=== PATIENT | male | born 1975 | race Caucasian/White ===

== ENCOUNTER 2017-01-06 12:10 | Emergency (ER) | payer BC ==
[~2017-01-06] VITALS: Ht 185.4 cm; Wt 90.7 kg
[2017-01-06] MEDS ORDERED: Morphine Sulfate 4mg/ml Inj IVP ONE (12:45)
[2017-01-06 13:34] LABS: MEAN CORPUSCULAR HEMOGLOBIN 29.6 PG (27.0-31.0); MEAN CORPUSCULAR HGB CONC 32.2 G/DL (32.0-36.0); MEAN CORPUSCULAR VOLUME 92 FL (80-99); MEAN PLATELET VOLUME 7.7 FL (6.5-10.1); PLATELET COUNT 306 K/UL (150-450); RED BLOOD COUNT 5.95 M/UL (4.70-6.10); WHITE BLOOD COUNT 16.9 K/UL (4.8-10.8)
[2017-01-06 13:39] LABS: ALANINE AMINOTRANSFERASE 58 U/L (3-41); ALBUMIN/GLOBULIN RATIO 1.5 (1.0-2.7); ASPARTATE AMINO TRANSFERASE 36 U/L (5-40); CALCIUM 10.2 mg/dL (8.6-10.2); CARBON DIOXIDE 28 mEQ/L (20-30); CREATININE 1.2 mg/dL (0.7-1.2); GLOMERULAR FILTRATION RATE > 60 mL/min (>60); HEMOLYSIS 135; LIPASE 18 U/L (< 60); TOTAL PROTEIN 8.4 g/dL (6.6-8.7)
--- NOTE | 2017-01-06 13:47 | Emergency Room Report ---
History of Present Illness General Chief Complaint: Abdominal Pain Source: Patient Present Illness HPI 41 YO Male presents to the ED c/o Right flank and RLQ 10/10 in severity pain that is constant with intermittent exacerbations. pt. reports decreased appetite and nausea/vomiting since this am. denies constipation or diarrhea. reports chills. denies fevers or hx of kidney stones. pt. reports intermittent elevated BP but denies being rx'd oral htn medications. Denies rashes, blood in the vomit or stool. Denies black tarry stools. he denies taking medications , has not taken medication for his pain today. Denies CP, Palpitations, LOC, AMS , dizziness, Changes in Vision, Sensation, paresthesias, or a sudden severe headache. Allergies: Coded Allergies: No Known Allergies (Unverified , 01/06/17) Patient History Past Medical History: see triage record Past Surgical History: none Pertinent Family History: none Immunizations: UTD Reviewed Nursing Documentation: PMH: Agreed, PSxH: Agreed Nursing Documentation-PMH Past Medical History: No Stated History Review of Systems All Other Systems: negative except mentioned in HPI Physical Exam Vital Signs Date Time Temp Pulse Resp B/P Pulse Ox O2 Delivery O2 Flow Rate FiO2 01/06/17 12:31 94.6 64 15 242/134 100 Room Air Sp02 EP Interpretation: reviewed, abnormal - elevated BP General Appearance: no apparent distress, alert, GCS 15, non-toxic Head: normocephalic, atraumatic Eyes: bilateral eye PERRL, bilateral eye normal inspection ENT: hearing grossly normal, normal pharynx, no angioedema, normal voice Neck: full range of motion, supple/symm/no masses Respiratory: lungs clear, normal breath sounds, speaking full sentences Cardiovascular #1: regular rate, rhythm, no edema Gastrointestinal: normal bowel sounds, soft, no rebound, other - Right CVA ttp , RLQ pain, Pt. exhibits guarding along the right side of abdomen, abdomen is non-distended no peritoneal signs. no LUQ or LLQ tenderness. Rectal: deferred Genitourinary: normal inspection, CVA tenderness (R) Musculoskeletal: back normal, gait/station normal, normal range of motion, non- tender, no calf tenderness Neurologic: alert, oriented x3, responsive, motor strength/tone normal, sensory intact, speech normal Psychiatric: judgement/insight normal, memory normal, mood/affect normal Skin: normal color, no rash, warm/dry, well hydrated Lymphatic: no adenopathy Medical Decision Making PA Attestation Dr. Kearns is my supervising Physician whom patient management has been discussed with. Diagnostic Impression: Primary Impression: Renal stone ER Course Pt. presents to the ED c/o Right flank and RLQ 10/10 in severity pain that is constant with intermittent exacerbations. pt. reports decreased appetite and nausea/vomiting since this am. denies constipation or diarrhea. reports chills. denies fevers or hx of kidney stones. pt. reports intermittent elevated BP but denies being rx'd oral htn medications. Ddx considered but are not limited to Diverticulitis, acute appendicitis, diarrhea,UC, PUD, GE, pancreatitis, gallstone, kidney stone, pyelonephritis, UTI , obstruction. Vital signs: are WNL, pt. is afebrile H&PE are most consistent with possible renal calculi or acute appendicitis. ORDERS: -CBC, CMP, lipase: elevated WBC's, - CT abdomen and pelvis no contrast: 2mm stone right UVJ with mild hydro. normal appendix per official radiology report. ED INTERVENTIONS: -- 1000NS --4mg Morphine IV for pain -0.1mg Clonidine PO -Toradol IV -1g Rocephin IV d/w pt. the results of imaging, and treatment plan. pt. is stable for close outpatient follow up. he expressed he does not have a pcp that he sees regularly , so he is also given a list of primary care clinics for follow up. DISCHARGE: At this time pt. is stable for d/c to home. Will provide printed patient care instructions, and any necessary prescriptions. Care plan and follow up instructions have been discussed with the patient prior to discharge. Labs Test 01/06/17 12:57 White Blood Count 16.9 K/UL (4.8-10.8) Red Blood Count 5.95 M/UL (4.70-6.10) Hemoglobin 17.6 G/DL (14.2-18.0) Hematocrit 54.8 % (42.0-52.0) Mean Corpuscular Volume 92 FL (80-99) Mean Corpuscular Hemoglobin 29.6 PG (27.0-31.0) Mean Corpuscular Hemoglobin Concent 32.2 G/DL (32.0-36.0) Red Cell Distribution Width 13.0 % (11.6-14.8) Platelet Count 306 K/UL (150-450) Mean Platelet Volume 7.7 FL (6.5-10.1) Neutrophils (%) (Auto) 87.2 % (45.0-75.0) Lymphocytes (%) (Auto) 7.8 % (20.0-45.0) Monocytes (%) (Auto) 4.4 % (1.0-10.0) Eosinophils (%) (Auto) 0.0 % (0.0-3.0) Basophils (%) (Auto) 0.5 % (0.0-2.0) Differential Total Cells Counted 100 Neutrophils % (Manual) 84 % (45-75) Lymphocytes % (Manual) 10 % (20-45) Monocytes % (Manual) 5 % (1-10) Eosinophils % (Manual) 0 % (0-3) Basophils % (Manual) 0 % (0-2) Band Neutrophils 1 % (0-8) Platelet Estimate Adequate Platelet Morphology Normal Red Blood Cell Morphology Normal Sodium Level 143 mEQ/L (135-145) Potassium Level 4.9 mEQ/L (3.4-4.9) Chloride Level 103 mEQ/L (98-107) Carbon Dioxide Level 28 mEQ/L (20-30) Blood Urea Nitrogen 17 mg/dL (7-23) Creatinine 1.2 mg/dL (0.7-1.2) Estimat Glomerular Filtration Rate > 60 mL/min (>60) Glucose Level 149 mg/dL (74-106) Calcium Level 10.2 mg/dL (8.6-10.2) Total Bilirubin 0.6 mg/dL (0.0-1.2) Aspartate Amino Transf (AST/SGOT) 36 U/L (5-40) Alanine Aminotransferase (ALT/SGPT) 58 U/L (3-41) Alkaline Phosphatase 83 U/L (40-129) Total Protein 8.4 g/dL (6.6-8.7) Albumin 5.1 g/dL (3.5-5.2) Globulin 3.3 g/dL Albumin/Globulin Ratio 1.5 (1.0-2.7) Lipase 18 U/L (< 60) Last Vital Signs Date Time Temp Pulse Resp B/P Pulse Ox O2 Delivery O2 Flow Rate FiO2 8/6/17 12:31 94.6 64 15 242/134 100 Room Air Disposition: HOME, SELF-CARE Condition: Stable Scripts Cephalexin* (KEFLEX*) 500 Mg Capsule 500 MG ORAL EVERY 12 HOURS for 7 Days, #14 CAP 0 Refills Prov: Sabrina Jj 01/06/17 Tamsulosin Hcl (TAMSULOSIN HCL*) 0.4 Mg Cap.er.24h 0.4 MG ORAL BEDTIME for 3 Days, #3 CAP Prov: Sabrina Jj 01/06/17 Hydrocodone Bit/Acetaminophen 5-325* (NORCO 5-325*) 1 Each Tablet 1 TAB ORAL Q6H Y for For Pain, #6 TAB 0 Refills Prov: Sabrina Jj 01/06/17 Hydrochlorothiazide* (HYDROCHLOROTHIAZIDE*) 12.5 Mg Capsule 12.5 MG ORAL DAILY for 14 Days, #14 CAP Prov: Sabrina Jj 01/06/17 Referrals: NOT CHOSEN IPA/MD,REFERRING (PCP) Patient Instructions: Kidney Stones Additional Instructions: Take medications as directed. Follow up with a Primary Care Provider in 3-5 days, even if your symptoms have resolved. --Please review list of primary care clinics, if you do not already have a primary care provider FOLLOW UP with a PCP regarding ELEVATED BP Return sooner to ED if new symptoms occur, or current symptoms become worse. Do not drink alcohol, drive, or operate heavy machinery while taking [place] as this may cause drowsiness. - Please note that this Emergency Department Report was dictated using [employer] laboratory technician technology software, occasionally this can lead to erroneous entry secondary to interpretation by the dictation equipment. Sabrina Jj Jan 06, 2017 13:47
[2017-01-06 13:51] LABS: CHLORIDE 103 mEQ/L (98-107); POTASSIUM 4.9 mEQ/L (3.4-4.9); SODIUM 143 mEQ/L (135-145)
[2017-01-06 14:05] LABS: BASOPHILS % (AUTO) 0.5 % (0.0-2.0); LYMPHOCYTES % (AUTO) 7.8 % (20.0-45.0); MONOCYTES % (AUTO) 4.4 % (1.0-10.0); NEUTROPHILS % (AUTO) 87.2 % (45.0-75.0)
[2017-01-06 14:13] LABS: BAND NEUTROPHILS % (MANUAL) 1 % (0-8); BASOPHILS % (MANUAL) 0 % (0-2); EOSINOPHILS % (MANUAL) 0 % (0-3); LYMPHOCYTES % (MANUAL) 10 % (20-45); NEUTROPHILS % (MANUAL) 84 % (45-75); PLATELET ESTIMATE ADEQUATE; PLATELET MORPHOLOGY NORMAL; TOTAL CELLS COUNTED 100
[2017-01-06] MEDS ORDERED: Ketorolac 30mg Inj IV ONE (14:15)
[2017-01-06] MEDS ORDERED: cefTRIAXone 1 GM in NS 55 ML IVPB ONE (14:30)
[2017-01-06] MEDS ORDERED: NORCO 5-325 TA1 EACH ORAL (15:15)
[2017-01-06] MEDS ORDERED: TAMSULOSIN HCL0.4 MG ORAL (15:15)
[2017-01-06] MEDS ORDERED: HYDROCHLOROTH12.5 M2 ORAL (15:15)
[2017-01-06] MEDS ORDERED: CEPHALEXIN500 MG ORAL (15:15)
[2017-01-06 16:24] VITALS: BP 158/89
[2017-01-06 16:25] VITALS: BP 158/89
--- NOTE | 2017-01-08 09:05 | Diagnostic Imaging Report ---
Indication: Abdominal pain Technique: Continuous helical transaxial imaging of the abdomen and pelvis was obtained from the lung bases to the pubic symphysis. No intravenous contrast was administered. Coronal 2-D reformats were also obtained. Total Dose length Product (DLP): [address] Dose Index Volume (CTDIvol): 15 mGy Comparison: none Findings: There is mild right hydronephrosis with perinephric and periureteral stranding secondary to a 2 mm stone at the right UVJ. No other stones are identified. There are bilateral inguinal hernias containing fat. No free fluid or free air identified. Small hiatal hernia is present. The lung bases are clear. Narrowing of the L4-5 disc and L5-S1 disc noted. Impression: Right hydronephrosis secondary to a 2 mm right UVJ stone. Small bilateral inguinal hernias containing fat Small hiatal hernia Degenerative disc disease The CT scanner at [facility] is accredited by the [employer] and the scans are performed using dose optimization techniques as appropriate to a performed exam including Automatic Exposure control.
== END 2017-01-06 16:30 | disposition home or self-care (01) ==
LOC: EMR 12:40
DX: N13.2 Hydronephrosis with renal and ureteral calculous obstruction (principal); K40.90 Unilateral inguinal hernia, without obstruction or gangrene, not specified as recurrent; K44.9 Diaphragmatic hernia without obstruction or gangrene; M51.36 Other intervertebral disc degeneration, lumbar region
CPT/HCPCS: 36415; 74176; 80053; 83690; 85007; 85025; 96361; 96374; 96375; 99284; J0696; J1885; J2270; 96360

== ENCOUNTER 2018-08-06 10:28 | Emergency (ER) | payer BC, MEDICAID ==
[~2018-08-06] VITALS: Ht 185.4 cm; Wt 90.7 kg
[~2018-08-06 10:28] MED LIST: CEPHALEXIN500 MG ORAL; HYDROCHLOROTH12.5 M2 ORAL; NORCO 5-325 TA1 EACH ORAL; TAMSULOSIN HCL0.4 MG ORAL
[2018-08-06] MEDS ORDERED: LISINOPRIL5 MG ORAL (10:40)
[2018-08-06 10:42] VITALS: BP 165/110
--- NOTE | 2018-08-06 10:45 | NUR ---
ED Nurse Note: PT. AAOX4. AMBULATORY. CAME IN TO ER DUE TO RIGHT TESTICULAR SWELLING AND PAIN RADIATING TO LOWER RIGHT BACK X LAST NIGHT. PAIN GOT WORSE TODAY. DENIES TRAUMA. DENIES DRAINAGE. REDNESS AND WARMTH NOTED ON THE AREA. DENIES NUMBNESS ON THE AREA. DID NOT TAKE ANY PAIN MEDS PRIOR TO ER ARRIVAL. DENIES HAVING DIFFICULTY URINATING.
--- NOTE | 2018-08-06 11:00 | NUR ---
ED Nurse Note: US AT THE BEDSIDE
--- NOTE | 2018-08-06 11:13 | Emergency Room Report ---
History of Present Illness General Chief Complaint: Male Urogenital Problems Source: Patient Present Illness HPI 42-year-old male presents ED for evaluation. Complaining of right testicular pain and swelling. Started yesterday while at work. Pain is sharp, 6 out of 10 , nonradiating. 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 His concern for a potential hernia. Denies any discharge. Denies fevers or chills. No other aggravating relieving factors. Denies any other associated symptoms Allergies: Coded Allergies: No Known Allergies (Unverified , 08/06/18) Patient History Past Medical History: HTN Past Surgical History: none Pertinent Family History: none Social History: Denies: smoking, alcohol use, drug use Immunizations: UTD Reviewed Nursing Documentation: PMH: Agreed; PSxH: Agreed Nursing Documentation-PMH Past Medical History: No History, Except For Hx Hypertension: Yes Review of Systems All Other Systems: negative except mentioned in HPI Physical Exam Vital Signs Date Time Temp Pulse Resp B/P (MAP) Pulse Ox O2 Delivery O2 Flow Rate FiO2 08/06/18 10:35 98.1 92 16 165/110 97 Room Air Sp02 EP Interpretation: reviewed, normal General Appearance: no apparent distress, alert, GCS 15, non-toxic Head: normocephalic Eyes: bilateral eye normal inspection, bilateral eye PERRL ENT: normal ENT inspection Neck: normal inspection Respiratory: normal inspection Cardiovascular #1: normal inspection Gastrointestinal: normal inspection Rectal: deferred Genitourinary: no CVA tenderness, other - R testicular pain Musculoskeletal: normal inspection Neurologic: alert, oriented x3, responsive, motor strength/tone normal, sensory intact, speech normal Psychiatric: normal inspection Skin: normal inspection Lymphatic: normal inspection Medical Decision Making Diagnostic Impression: Primary Impression: Epididymitis ER Course Hospital Course 42-year-old male presents to ED with right testicular pain/swelling. Differential diagnoses include: hydrocele, varicocele, epididymitis, testicular torsion Clinical course Patient placed on stretcher. After initial history and physical I ordered UA and scrotal ultrasound. UA-normal Ultrasound shows epididymitis on right. No evidence of torsion. Good flow to both testicles. Discussed findings with patient. Reassurance given. Given Rocephin/ azithromycin here. We'll discharge with Levaquin. Safe for discharge or close outpatient follow-up. We'll provide PMD and urology referrals Diagnosis - epididymitis stable and discharged to home with prescription for levaquin. Followup with PMD. Return to ED if symptoms recur or worsen Labs Test 08/06/18 11:10 Urine Color Yellow Urine Appearance Clear Urine pH 5 (4.5-8.0) Urine Specific [place] 1.025 (1.005-1.035) Urine Protein 2+ (NEGATIVE) Urine Glucose (UA) 1+ (NEGATIVE) Urine Ketones 1+ (NEGATIVE) Urine Blood 2+ (NEGATIVE) Urine Nitrite Negative (NEGATIVE) Urine Bilirubin Negative (NEGATIVE) Urine Urobilinogen 1 MG/DL (0.0-1.0) Urine Leukocyte Esterase 2+ (NEGATIVE) Urine RBC 2-4 /HPF (0 - 0) Urine WBC 15-20 /HPF (0 - 0) Urine Squamous Epithelial Cells Occasional /LPF Urine Bacteria Occasional /HPF (NONE) Urine Mucus Many /LPF (NONE/OCC) CT/MRI/US Diagnostic Results CT/MRI/US Diagnostic Results : Imaging Test Ordered: Scrotal US Impression epididymitis Last Vital Signs Date Time Temp Pulse Resp B/P (MAP) Pulse Ox O2 Delivery O2 Flow Rate FiO2 08/06/18 10:42 98.1 92 16 165/110 97 Room Air Status: improved Disposition: HOME, SELF-CARE Condition: Stable Scripts Ibuprofen* (MOTRIN*) 600 Mg Tablet 600 MG ORAL Q8H PRN for For Pain, #30 TAB 0 Refills Prov: Juan Antonio Kumar MD 08/06/18 Levofloxacin* (LEVAQUIN*) 500 Mg Tablet 500 MG ORAL DAILY for 10 Days, TAB Prov: Juan Antonio Kumar MD 08/06/18 Juan Antonio Kumar MD Aug 06, 2018 11:13
[2018-08-06 11:17] LABS: APPEARANCE,URINE CLEAR; BILIRUBIN, URINE NEGATIVE (NEGATIVE); GLUCOSE, URINE (UA) 1+ (NEGATIVE); KETONES,URINE 1+ (NEGATIVE); LEUKOCYTE ESTERASE ,URINE 2+ (NEGATIVE); NITRITE,URINE NEGATIVE (NEGATIVE); PH,URINE 5 (4.5-8.0); PROTEIN,URINE 2+ (NEGATIVE); UROBILINOGEN,URINE 1 MG/DL (0.0-1.0)
[2018-08-06 11:25] LABS: COLOR,URINE YELLOW
[2018-08-06] MEDS ORDERED: LEVAQUIN500 MG ORAL (11:57)
[2018-08-06] MEDS ORDERED: IBUPROFEN600 MG ORAL (11:57)
[2018-08-06] MEDS ORDERED: Lidocaine 1% MPF 10mg/ml 5ml INJ ONE (12:00)
[2018-08-06] MEDS ORDERED: Azithromycin 250mg tab ORAL ONE (12:00)
--- NOTE | 2018-08-06 12:01 | Diagnostic Imaging Report ---
Indications: Testicular pain Technique: Grayscale and duplex images of the scrotum Comparison: none Findings:The right testicle measures 3.9cm in length. It demonstrates normal echogenicity. Normal Doppler flow. The epididymal head, body, and tail are prominent and hyperemic. There is a testicular appendage noted. A 5 mm cyst is noted within the epididymal head. There is a moderate to large large right hydrocele The left testicle measures 4.1 cm in length. It demonstrates normal echogenicity and normal Doppler flow. It demonstrates a few small calcifications. It demonstrates a small hydrocele. The epididymal head neck junction demonstrates a 7 mm cyst as well as smaller cysts. Impression: Enlarged hyperemic right epididymis, findings consistent with epididymitis No evidence of testicular torsion Moderate to large right, small left hydroceles Bilateral epididymal head cysts, most likely spermatoceles or epididymal cysts
[2018-08-06 12:05] VITALS: BP 155/75
--- NOTE | 2018-08-06 12:06 | NUR ---
ED Nurse Note: PT. AAOX4. AMBULATORY. LEFT WITH STEADY GAIT. PT. EDUCATION DONE REGARDING D/C PAPERS AND PRESCRIPTIONS. PT. VERBALIZED THE UNDERSTANDING OF THE TEACHING. ID ARMBAND REMOVED. LEFT WITH ALL BELONGINGS.
== END 2018-08-06 12:06 | disposition home or self-care (01) ==
LOC: EMR 11:09
DX: N45.1 Epididymitis (principal); I10 Essential (primary) hypertension; N43.3 Hydrocele, unspecified
CPT/HCPCS: 76870; 81003; 87086; 96372; 96374; 99284; J0696; Q0144

== ENCOUNTER 2019-03-20 02:26 | Emergency (ER) | payer SELFPAY ==
[~2019-03-20] VITALS: Ht 185.4 cm; Wt 88.5 kg
[~2019-03-20 02:26] MED LIST changes: +IBUPROFEN600 MG ORAL; +LEVAQUIN500 MG ORAL; +LISINOPRIL5 MG ORAL
--- NOTE | 2019-03-20 02:41 | NUR ---
ED Nurse Note: pt walked in to ED C/O left knee pain that started on 03/19/19 afternoon. pt denies any injury or trauma to left knee. pt left knee is warm to touch and is reddened. pt is alert x4. VSS
[2019-03-20 02:42] VITALS: BP 173/101
[2019-03-20] MEDS ORDERED: Bactrim-DS 1 tab ORAL ONE (03:15)
[2019-03-20] MEDS ORDERED: cefTRIAXone 1 GM in NS 55 ML IVPB ONE (03:15)
--- NOTE | 2019-03-20 03:18 | NUR ---
ED Nurse Note: blood samples sent down to lab
[2019-03-20 03:25] LABS: BASOPHILS % (AUTO) 0.4 % (0.0-2.0); EOSINOPHILS % (AUTO) 0.7 % (0.0-3.0); HEMOGLOBIN 15.5 G/DL (14.2-18.0); LYMPHOCYTES % (AUTO) 18.8 % (20.0-45.0); MEAN CORPUSCULAR VOLUME 89 FL (80-99); MONOCYTES % (AUTO) 10.6 % (1.0-10.0); NEUTROPHILS % (AUTO) 69.5 % (45.0-75.0); PLATELET COUNT 257 K/UL (150-450); RED BLOOD COUNT 5.17 M/UL (4.70-6.10); RED CELL DISTRIBUTION WIDTH 12.7 % (11.6-14.8); WHITE BLOOD COUNT 16.3 K/UL (4.8-10.8)
--- NOTE | 2019-03-20 03:31 | Emergency Room Report ---
History of Present Illness General Chief Complaint: Lower Extremity Injury Source: Patient Present Illness HPI Patient presents with complaints of left knee redness and discomfort Reports that he was at work when he started feeling the discomfort has now persisted and he sees some redness in that region And presents for further eval pain is also worse with walking Denies any fevers or chills denies any back or flank pain denies any trauma Allergies: Coded Allergies: No Known Allergies (Unverified , 08/06/18) Patient History Past Medical History: see triage record Reviewed Nursing Documentation: PMH: Agreed; PSxH: Agreed Nursing Documentation-PMH Past Medical History: No Stated History Hx Hypertension: Yes Review of Systems All Other Systems: negative except mentioned in HPI Physical Exam Vital Signs Date Time Temp Pulse Resp B/P (MAP) Pulse Ox O2 Delivery O2 Flow Rate FiO2 03/20/19 02:34 98.2 93 18 191/110 (137) 98 Room Air Sp02 EP Interpretation: reviewed, normal General Appearance: well appearing, no apparent distress Head: normocephalic, atraumatic Eyes: bilateral eye PERRL, bilateral eye EOMI ENT: hearing grossly normal, normal pharynx, TMs + canals normal, uvula midline Neck: full range of motion, supple, no meningismus, no bony tend Respiratory: lungs clear, normal breath sounds, no rhonchi, no respiratory distress, no retraction, no accessory muscle use Cardiovascular #1: normal peripheral pulses, regular rate, rhythm, no edema, no gallop, no JVD, no murmur Gastrointestinal: normal bowel sounds, non tender, soft, no mass, no organomegaly, non-distended, no guarding, no hernia, no pulsatile mass, no rebound Genitourinary: no CVA tenderness Musculoskeletal: other - Redness noted to the left knee appears to be fairly localized to the skin itself just over the patellar area, there is also some mild erythema proximal to that Neurologic: oriented x3, responsive, role player III-XII nml as tested, motor strength/ tone normal, sensory intact Psychiatric: mood/affect normal Skin: other - As above Lymphatic: normal inspection, no adenopathy Procedures Additional Procedure Procedure Narrative Given the complaints and presentation Given the mildly elevated white blood cell count I felt it was important to evaluate possible joint effusion And evaluating septic joint Therefore total of 4 cc of 1% lidocaine were injected at the right lower knee area after palpating the lower aspect of the patella After this using a 22-gauge needle aspiration was attempted I do feel that we did enter the joint space however there was no aspiration of fluid and the procedure was terminated Patient tolerated the procedure well Medical Decision Making Diagnostic Impression: Primary Impression: Bursitis Additional Impression: Cellulitis ER Course Multiple differentials including but not limited to septic joint, cellulitis, bursitis, with secondary infection all entertained Patient's white blood cell count is mildly elevated Further IV antibiotics and hydration is provided please refer to the note for Fluid aspiration attempt No obvious fluid was aspirated on palpation of the knee there appears to be significant subcutaneous fullness in the anterior patella consistent with possible bursitis Given the lack of any aspiration of fluids and the examination patient will have continued initial outpatient attempt at this time Patient reports that 2 years ago he had infection of the left ankle area which was soon after followed by infection of the right ankle Denies any previous history of gonorrhea or chlamydia He was here about 6 months ago with what was diagnosed as epididymitis raising the question and concern of, possible GC chlamydia infection Patient's sed rate at this time also normal Patient remains hemodynamically stable at this time Will have initial attempt on outpatient antibiotics and return with any worrisome changes or concerns Labs Test 03/20/19 03:15 White Blood Count 16.3 K/UL (4.8-10.8) Red Blood Count 5.17 M/UL (4.70-6.10) Hemoglobin 15.5 G/DL (14.2-18.0) Hematocrit 46.0 % (42.0-52.0) Mean Corpuscular Volume 89 FL (80-99) Mean Corpuscular Hemoglobin 30.0 PG (27.0-31.0) Mean Corpuscular Hemoglobin Concent 33.7 G/DL (32.0-36.0) Red Cell Distribution Width 12.7 % (11.6-14.8) Platelet Count 257 K/UL (150-450) Mean Platelet Volume 5.8 FL (6.5-10.1) Neutrophils (%) (Auto) 69.5 % (45.0-75.0) Lymphocytes (%) (Auto) 18.8 % (20.0-45.0) Monocytes (%) (Auto) 10.6 % (1.0-10.0) Eosinophils (%) (Auto) 0.7 % (0.0-3.0) Basophils (%) (Auto) 0.4 % (0.0-2.0) Erythrocyte Sedimentation Rate 1 MM/HR (0-15) Sodium Level 141 MMOL/L (136-145) Potassium Level 3.1 MMOL/L (3.5-5.1) Chloride Level 104 MMOL/L (98-107) Carbon Dioxide Level 31 MMOL/L (21-32) Anion Gap 6 mmol/L (5-15) Blood Urea Nitrogen 16 mg/dL (7-18) Creatinine 1.1 MG/DL (0.55-1.30) Estimat Glomerular Filtration Rate > 60 mL/min (>60) Glucose Level 128 MG/DL (74-106) Lactic Acid Level 1.40 mmol/L (0.4-2.0) Calcium Level 9.3 MG/DL (8.5-10.1) Total Bilirubin 0.5 MG/DL (0.2-1.0) Aspartate Amino Transf (AST/SGOT) 33 U/L (15-37) Alanine Aminotransferase (ALT/SGPT) 72 U/L (12-78) Alkaline Phosphatase 94 U/L (46-116) Total Protein 7.0 G/DL (6.4-8.2) Albumin 3.7 G/DL (3.4-5.0) Globulin 3.3 g/dL Albumin/Globulin Ratio 1.1 (1.0-2.7) Other X-Ray Diagnostic Results Other X-Ray Diagnostic Results : X-Ray ordered: Left knee # of Views/Limited Vs Complete: 3 View Indication: Pain EP Interpretation: Yes Interpretation: no dislocation, no soft tissue swelling, no fractures, other - Small effusion Impression: Other - Small effusion Electronically Signed by: Omer Santana DO Last Vital Signs Date Time Temp Pulse Resp B/P (MAP) Pulse Ox O2 Delivery O2 Flow Rate FiO2 03/20/19 02:34 98.2 93 18 191/110 (137) 98 Room Air Status: improved Disposition: HOME, SELF-CARE Condition: Improved Scripts Ibuprofen* (MOTRIN*) 600 Mg Tablet 600 MG ORAL Q8H PRN for For Pain, #20 TAB 0 Refills Prov: Omer Santana DO 03/20/19 Doxycycline Monohydrate* (DOXYCYCLINE MONOHYDRATE*) 100 Mg Capsule 100 MG ORAL Q12H, #14 CAP 0 Refills Prov: DenislindenOmer ASHRAF 03/20/19 Trimethoprim/Sulfamethoxazole 160/800* (BACTRIM DS TABLET*) 1 Each Tablet 1 TAB ORAL Q12H, #14 TAB 0 Refills Prov: EstherOmer ASHRAF 03/20/19 Cephalexin* (KEFLEX*) 500 Mg Capsule 500 MG ORAL EVERY 6 HOURS for 7 Days, CAP Prov: Omer Santana DO 03/20/19 Referrals: NON PHYSICIAN (PCP) Additional Instructions: Patient is provided with the discharge instructions notified to follow up with primary doctor in the next 2-3 days otherwise return to the er with any worsening symptoms. Please note that this report is being documented using [employer] technology. This can lead to erroneous entry secondary to incorrect interpretation by the dictating instrument. Omer Santana DO Mar 20, 2019 03:31
[2019-03-20 03:39] LABS: ANION GAP 6 mmol/L (5-15); BLOOD UREA NITROGEN 16 mg/dL (7-18); CALCIUM 9.3 MG/DL (8.5-10.1); CARBON DIOXIDE 31 MMOL/L (21-32); CHLORIDE 104 MMOL/L (98-107); CREATININE 1.1 MG/DL (0.55-1.30); POTASSIUM 3.1 MMOL/L (3.5-5.1); SODIUM 141 MMOL/L (136-145)
[2019-03-20 03:44] LABS: ALANINE AMINOTRANSFERASE 72 U/L (12-78); ALBUMIN 3.7 G/DL (3.4-5.0); ALBUMIN/GLOBULIN RATIO 1.1 (1.0-2.7); ALKALINE PHOSPHATASE 94 U/L (46-116); ASPARTATE AMINO TRANSFERASE 33 U/L (15-37); BILIRUBIN,TOTAL 0.5 MG/DL (0.2-1.0)
[2019-03-20] MEDS ORDERED: Lisinopril 10mg tab ONE (04:08)
[2019-03-20] MEDS ORDERED: Doxycycline Monohydrate 100mg ORAL ONE (04:15)
[2019-03-20] MEDS ORDERED: Lisinopril 10mg tab ORAL ONE (04:15)
--- NOTE | 2019-03-20 04:17 | NUR ---
ED Nurse Note: left knee x ray being performed at bedside.
[2019-03-20] MEDS ORDERED: Lidocaine 1% Plain 30 ml INJ ONE ×2 (04:27→04:30)
[2019-03-20] MEDS ORDERED: Morphine Sulfate 4mg/ml Inj (IV USE ONLY) IVP ONE (05:00)
[2019-03-20] MEDS ORDERED: Ketorolac 30mg Inj IV ONE (05:00)
[2019-03-20 05:04] VITALS: BP 160/95
[2019-03-20] MEDS ORDERED: IBUPROFEN600 MG ORAL (05:35)
[2019-03-20] MEDS ORDERED: BACTRIM DS TAB1 EAC1 ORAL (05:35)
[2019-03-20] MEDS ORDERED: DOXYCYCLINE MO100 MG ORAL (05:35)
[2019-03-20] MEDS ORDERED: CEPHALEXIN500 MG ORAL (05:35)
[2019-03-20 05:45] VITALS: BP 165/98
--- NOTE | 2019-03-20 05:45 | NUR ---
ER DISCHARGE NOTE: Patient is cleared to be discharged per ERMD, pt is aox4, on room air, with stable vital signs. pt was given dc and prescription instructions, pt was able to verbalize understanding, pt id band and iv site removed without complications. pt is able to ambulate with steady gait. pt took all belongings.
--- NOTE | 2019-03-20 10:00 | Diagnostic Imaging Report ---
Indication: Knee pain Technique: XRAY Knee 1-2v L Comparison: None Findings: Bone mineralization within normal limits. There is no evidence of acute fracture or dislocation. No suprapatellar joint effusion. No radiopaque foreign body. Impression: No acute fracture or dislocation.
== END 2019-03-20 05:45 | disposition home or self-care (01) ==
LOC: EMR 03:09
DX: M71.562 Other bursitis, not elsewhere classified, left knee (principal); L03.116 Cellulitis of left lower limb; I10 Essential (primary) hypertension
CPT/HCPCS: 20610; 36415; 73560; 80053; 83605; 85025; 85651; 87040; 96361; 96365; 96375; 99284; J0696; J1885; J2001; J2270; J2405; J7030